=== PATIENT | male | born 1975 | race African-American/Black ===

== ENCOUNTER 2019-01-07 23:50 | Emergency (ER) | payer SELFPAY ==
[~2019-01-07] VITALS: Ht 180.3 cm; Wt 127.0 kg
[2019-01-08 00:02] VITALS: BP 192/113
--- NOTE | 2019-01-08 00:19 | PHYS DOC ---
Past Medical History Past Medical History: Hypertension Past Surgical History: No Surgical History Smoking: Less than 1pk/day Alcohol Use: None Drug Use: None Adult General Chief Complaint Chief Complaint: EYE PROBLEMS HPI HPI Patient is a 43 year old male who presents with bilateral eye irritation for the past few hours. Patient states that he was watching television when the irritation started. Patient states that he used a baby wipe on his face today to clean his face and his eyes felt irritated shortly after. Patient reports that his eyes have been tearing and burning. Patient reports a recent upper respiratory infection and a history of seasonal allergies. Patient denies any eye discharge or crusting. Patient denies any aggravating or alleviating factors. Patient rates his eye discomfort to be 10/10 currently. Review of Systems Review of Systems Constitutional: Denies fever or chills Eyes: Denies change in visual acuity. Denies discharge. HENT: Reports recent nasal congestion. Denies sore throat. Respiratory: Reports recent cough. Denies shortness of breath. Cardiovascular: Denies chest pain or palpitations. GI: Denies abdominal pain, nausea, vomiting, or diarrhea. : Denies dysuria or hematuria. Musculoskeletal: Denies back pain or joint pain. Integument: Denies rash or skin lesions. Neurologic: Denies focal weakness or sensory changes Complete other systems were reviewed and found to be within normal limits, except as documented in this note. Current Medications Current Medications Current Medications Medications (Trade) Dose Ordered Sig/Sang Start Time Stop Time Status Last Admin Dose Admin Dexamethasone (Decadron) 10 mg 1X ONCE 01/08/19 00:45 01/08/19 00:46 DC 01/08/19 01:10 10 MG Erythromycin (Romycin) 0.25 inch 1X ONCE 01/08/19 00:45 01/08/19 00:46 DC 01/08/19 01:09 0.25 INCH Allergies Allergies Allergies Coded Allergies Type Severity Reaction Last Updated Verified No Known Drug Allergies 01/08/19 No Physical Exam Physical Exam Constitutional: Well developed, well nourished, no acute distress, non-toxic appearance. HENT: Normocephalic, atraumatic, bilateral external ears normal, oropharynx moist. Eyes: PERRL, EOMI, bilateral conjunctiva erythema, no discharge. Neck: No tenderness, supple. Cardiovascular:Heart rate regular rhythm, no murmur. Lungs & Thorax: Bilateral breath sounds clear to auscultation. Abdomen: Obese. Soft, no tenderness. Skin: Warm, dry. Back: No tenderness, no CVA tenderness. Extremities: No tenderness, no edema. Neurologic: Alert and oriented X3, no focal deficits noted. Psychologic: Affect normal. Speech normal. Current Patient Data Vital Signs Vital Signs Date Time Temp Pulse Resp B/P (MAP) Pulse Ox O2 Delivery O2 Flow Rate FiO2 01/08/19 00:02 97.6 90 16 192/113 (139) 96 Room Air 97.6 EKG EKG [] Radiology/Procedures Radiology/Procedures [] Course & Med Decision Making Course & Med Decision Making Patient is a 43 year old male who presents for evaluation of eye irritation. Not obvious is etiology is chemical due to wipe use or allergic as patient has seasonal allergies. Patient treated with 10mg Dexamethasone in the ED. Erythromycin ointment applied to bilateral eyes in the ED. Patient stable for discharge with outpatient follow-up with PCP. Discussed findings and plan with patient and family, who acknowledge understanding and agreement. Dragon Disclaimer Dragon Disclaimer This electronic medical record was generated, in whole or in part, using a voice recognition dictation system. Departure Departure Impression: Primary Impression: Conjunctivitis Disposition: 01 HOME, SELF-CARE Condition: STABLE Referrals: LIYAH RUDOLPH MD Patient Instructions: Allergic Conjunctivitis, [id number], Conjunctivitis, Chemical, [id number] Scripts Erythromycin Base (Erythromycin) 1 Gm Oint...g. 0.5 INCH OP QID for 5 Days, MISC Use to each eye for next 5 days Prov: YO GONZALEZ DO 01/08/19 Problem Qualifiers Primary Impression: Conjunctivitis Conjunctivitis type: acute Acute conjunctivitis type: unspecified Laterality: bilateral Qualified Codes: H10.33 - Unspecified acute conjunctivitis, bilateral YO GONZALEZ DO Jan 08, 2019 00:19
[2019-01-08] MEDS ORDERED: ERYT1OIN6 OP (00:23)
[2019-01-08] MEDS ORDERED: DEXAMETHASONE 4 MG TABLET PO ONE (00:45)
[2019-01-08] MEDS ORDERED: ERYTHROMYCIN 0.5% OPHTH OINTMENT 1GM TUBE. OU ONE (00:45)
== END 2019-01-08 01:13 | disposition home or self-care (01) ==
LOC: ER 01-08 00:33
DX: H10.33 Unspecified acute conjunctivitis, bilateral (principal); I10 Essential (primary) hypertension; F17.200 Nicotine dependence, unspecified, uncomplicated; E66.9 Obesity, unspecified; Z68.39 Body mass index [BMI] 39.0-39.9, adult
CPT/HCPCS: 99283; J8540

== ENCOUNTER 2020-10-08 17:29 | Emergency (ER) | payer OTHER, MEDICAID ==
[~2020-10-08] VITALS: Ht 180.3 cm; Wt 127.0 kg
[~2020-10-08 17:29] MED LIST: ERYT1OIN6 OP
[2020-10-08 19:00] VITALS: BP 237/126
[2020-10-08] MEDS ORDERED: IBUP-1007 PO (19:38)
[2020-10-08] MEDS ORDERED: HYDR-2761 PO (19:38)
[2020-10-08] MEDS ORDERED: ORPH100T PO (19:38)
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
== END 2020-10-08 19:45 | disposition home or self-care (01) ==
LOC: ER 17:29
DX: M54.2 Cervicalgia (principal); M25.511 Pain in right shoulder; I10 Essential (primary) hypertension; G89.11 Acute pain due to trauma; F17.200 Nicotine dependence, unspecified, uncomplicated; V49.49XA Driver injured in collision with other motor vehicles in traffic accident, initial encounter; Y92.488 Other paved roadways as the place of occurrence of the external cause; Y93.89 Activity, other specified; Y99.8 Other external cause status
CPT/HCPCS: 99283